=== PATIENT | female | born 1965 | race Caucasian/White ===

== ENCOUNTER 2021-07-11 03:12 | Emergency (ER) | payer OTHER ==
[~2021-07-11] VITALS: Ht 149.9 cm; Wt 65.8 kg
[2021-07-11 03:21] VITALS: BP 141/58
--- NOTE | 2021-07-11 03:56 | NUR ---
Dr. Lozada at triage to exam patient.
[2021-07-11] MEDS ORDERED: MORPHINE SULFATE 10 MG/ML VIAL IVP ONE (04:00)
[2021-07-11] MEDS ORDERED: NACL 0.9% 1,000 ML IV ONE (04:00)
[2021-07-11] MEDS ORDERED: ONDANSETRON 4 MG/2 ML VIAL IVP ONE (04:00)
--- NOTE | 2021-07-11 04:00 | NUR ---
iv established 20g left ac
[2021-07-11] MEDS ORDERED: ONDA-188 SL (04:02)
[2021-07-11] MEDS ORDERED: HYDR-5080 PO (04:02)
--- NOTE | 2021-07-11 04:02 | NUR ---
Wheel chair to bed 6.
--- NOTE | 2021-07-11 05:21 | NUR ---
patient ambulated to the with assistance and back to bed 6
--- NOTE | 2021-07-11 05:35 | NUR ---
IV removed, catheter intact and site benign. Applied folded 4x4 gauze and tape to stop bleeding.
[2021-07-11 05:40] VITALS: BP 154/74
--- NOTE | 2021-07-11 05:40 | NUR ---
Patient discharged with v/s stable. Written and verbal after care instructions given on breast cancer and explained. Patient alert, oriented and verbalized understanding of instructions. Wheel Chair Assisted with steady gait. All questions addressed prior to discharge. ID band removed. Patient advised to follow up with PMD. Rx of hydrocodone/Acetaminophen, Zofran given.
--- NOTE | 2021-07-11 06:02 | NUR ---
The patient's care was reviewed and supervised by Linda Luna RN.
== END 2021-07-11 05:40 | disposition home or self-care (01) ==
LOC: MED 03:12
DX: C50.911 Malignant neoplasm of unspecified site of right female breast (principal); G89.3 Neoplasm related pain (acute) (chronic); I10 Essential (primary) hypertension; Z88.0 Allergy status to penicillin
CPT/HCPCS: 96361; 96374; 96375; 99285; J2270; J2405; J7030